=== PATIENT | male | born 1965 | race Asian ===

== ENCOUNTER 2022-11-13 23:00 | Emergency (ER) | payer OTHER ==
[~2022-11-13] VITALS: Ht 182.9 cm; Wt 72.6 kg
[2022-11-13 23:17] VITALS: BP 142/79; TEMP 98.2
== END 2022-11-14 00:30 | disposition home or self-care (01) ==
LOC: ED 23:00
DX: S16.1XXA Strain of muscle, fascia and tendon at neck level, initial encounter (principal); S50.02XA Contusion of left elbow, initial encounter; S80.01XA Contusion of right knee, initial encounter; V89.2XXA Person injured in unspecified motor-vehicle accident, traffic, initial encounter; F17.210 Nicotine dependence, cigarettes, uncomplicated
CPT/HCPCS: 80307; 99283